=== PATIENT | male | born 1980 | race Caucasian/White ===

== ENCOUNTER 2017-02-03 15:58 | Emergency (ER) | payer SELFPAY ==
[~2017-02-03] VITALS: Ht 190.5 cm; Wt 75.0 kg
[~2017-02-03 15:58] MED LIST: IBUP-232 PO; LORTA5 PO
[2017-02-03 16:03] VITALS: BP 112/68; PULSE 92; RESP 18; TEMP 98.6; O2SAT 99
--- NOTE | 2017-02-03 16:11 | PD ---
Physical Exam Date Seen by Provider: Feb 03, 2017 Time Seen by Provider: 16:10 Narrative 36 yr old male here with c/o having a horse stepped on his foot in August and ever since he has been having some weird veins and pains in his right leg. He also c/o shortness of breath and tingling sensations. He has had SOB for 2.5 years. He is awaiting bed placement. Data Data Last Documented VS Vital Signs Date Time Temp Pulse Resp B/P (MAP) Pulse Ox O2 Delivery O2 Flow Rate FiO2 02/03/17 16:03 98.6 92 18 112/68 (83) 99 Room Air [facility] Medical Record Reviewed: Yes Supervised Visit with SUNNY: No Condition: Stable Lyndsay Jerry Feb 03, 2017 16:11
--- NOTE | 2017-02-03 23:36 | RADRPT ---
EXAM DATE/TIME: 02/03/2017 21:54 [place] COMPARISON: No previous studies available for comparison. INDICATIONS : Right foot pain after being stepped on by horse. MEDICAL HISTORY : None. SURGICAL HISTORY : None. ENCOUNTER: Initial ACUITY: 3 months PAIN SCORE: 2/10 LOCATION: Right lateral Foot FINDINGS: Three view examination of the right foot demonstrates no soft tissue swelling, dislocation, or fractu re. The tarsal bones appear intact. The interphalangeal and metatarsophalangeal joints are intact. There is a mild spur at the dorsal talus. The subtalar joint is not well visualized. The calcaneus is intact. There is sclerosis at the proximal medial aspect of the first distal phalanx. This is lik mateus incidental. Bony mineralization is normal. CONCLUSION: No acute disease. 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 Mayur Garcia MD on February 03, 2017 at 23:32 Board Certified Radiologist. This report was verified electronically.
--- NOTE | 2017-02-03 23:44 | PD ---
HPI Chief Complaint: Medical Clearance Time Seen by Provider: 20:52 Travel History International Travel<30 days: No Contact w/Intl Traveler<30days: No Traveled to known affect area: No History of Present Illness HPI 36-year-old male came to the emergency room with history of PFSH Past Medical History Diminished Hearing: Yes ([place] LEFT EAR) Gastrointestinal Disorders: Yes (gastritis, barrets espophagus ) Medical other: Yes (left ear ) Immunizations Current: Yes Tetanus Vaccination: > 5 Years Influenza Vaccination: No Past Surgical History Ear Surgery: Yes (TUBES PLACED IN LEFT EAR X3) Other Surgery: Yes (ADNOIDS) Social History Alcohol Use: Yes (occ.) Tobacco Use: No (QUIT 2012) Substance Use: No Allergies-Medications (Allergen,Severity, Reaction): Coded Allergies: No Known Allergies (Unverified , 12/01/14) Reported Meds & Prescriptions Reported Meds & Active Scripts Active Active Prescriptions or Reported Medications Unobtainable Data Data Last Documented VS Vital Signs Date Time Temp Pulse Resp B/P (MAP) Pulse Ox O2 Delivery O2 Flow Rate FiO2 02/03/17 23:58 88 16 120/68 (85) 97 02/03/17 16:03 98.6 Room Air Orders Orders Foot, Complete ([id number]) (02/03/17 ) MDM Medical Decision Making Medical Screen Exam Complete: Yes Emergency Medical Condition: Yes Medical Record Reviewed: Yes Diagnosis Primary Impression: Injury of foot Qualified Codes: S99.921A - Unspecified injury of right foot, initial encounter Referrals: Jay Bowens MD 1 week Additional Instructions: Please follow-up with the orthopedist was name and number been given to you. There is a possibility that you've had a fracture of the foot that's old and now healing. Return to the ER if the condition worsens or any other new concerns. Scripts Unable to Obtain Active Prescriptions or Reported Meds Disposition: 01 DISCHARGE HOME Condition: Stable Eder Booth MD Feb 03, 2017 23:44
--- NOTE | 2017-02-03 23:50 | PD ---
HPI Chief Complaint: Medical Clearance Time Seen by Provider: 20:52 Travel History International Travel<30 days: No Contact w/Intl Traveler<30days: No Traveled to known affect area: No History of Present Illness HPI 36-year-old male came to the emergency room with history of his right foot being stepped on by a horse but that happened 8 months ago. Patient also had some unrelated complaint like notice some prominent veins on the back of his calf and the leg on the right side. Also complaining of some postnasal drip and anxiety. Patient does not have a primary care doctor. Vital signs are stable. All his symptoms have been going on for more than 6 months. [facility] Past Medical History Narrative Medical List of his past medical, surgical, social and family history is reviewed from the nursing note. Diminished Hearing: Yes ([place] LEFT EAR) Gastrointestinal Disorders: Yes (gastritis, barrets espophagus ) Medical other: Yes (left ear ) Immunizations Current: Yes Tetanus Vaccination: > 5 Years Influenza Vaccination: No Past Surgical History Ear Surgery: Yes (TUBES PLACED IN LEFT EAR X3) Other Surgery: Yes (ADNOIDS) Social History Alcohol Use: Yes (occ.) Tobacco Use: No (QUIT 2012) Substance Use: No Allergies-Medications (Allergen,Severity, Reaction): Coded Allergies: No Known Allergies (Unverified , 12/01/14) Comments No known drug allergies. Reported Meds & Prescriptions Reported Meds & Active Scripts Active Active Prescriptions or Reported Medications Unobtainable Narrative Medication List of his home medications reviewed from the nursing note. Review of Systems Except as stated in HPI: all other systems reviewed are Neg Physical Exam Narrative GENERAL: Awake, alert, no obvious distress SKIN: Focused skin assessment warm/dry. Right leg varicosities HEAD: Atraumatic. Normocephalic. EYES: Pupils equal and round. No scleral icterus. No injection or drainage. ENT: No nasal bleeding or discharge. Mucous membranes pink and moist. NECK: Trachea midline. No JVD. CARDIOVASCULAR: Regular rate and rhythm. No murmur appreciated. RESPIRATORY: No accessory muscle use. Clear to auscultation. Breath sounds equal bilaterally. GASTROINTESTINAL: Abdomen soft, non-tender, nondistended. Hepatic and splenic margins not palpable. MUSCULOSKELETAL: No obvious deformities. No clubbing. No cyanosis. No edema. NEUROLOGICAL: Awake and alert. No obvious cranial nerve deficits. Motor grossly within normal limits. Normal speech. PSYCHIATRIC: Appropriate mood and affect; insight and judgment normal. Data Data Last Documented VS Vital Signs Date Time Temp Pulse Resp B/P (MAP) Pulse Ox O2 Delivery O2 Flow Rate FiO2 02/03/17 23:58 88 16 120/68 (85) 97 02/03/17 16:03 98.6 Room Air Orders Orders Foot, Complete ([id number]) (02/03/17 ) MDM Medical Decision Making Medical Screen Exam Complete: Yes Emergency Medical Condition: Yes Medical Record Reviewed: Yes Differential Diagnosis Varicose veins, healing fracture, foot contusion Narrative Course 11:48 PM the x-ray suggestive of some irregularity at the subtalar joint that the radiologist has called coalclaudio. But given his history I have asked him to follow up with orthopedist. Procedures EKG Prior to Arrival: No Diagnosis Primary Impression: Injury of foot Qualified Codes: S99.921A - Unspecified injury of right foot, initial encounter Additional Impression: Varicose veins of legs Referrals: Jay Bowens MD 1 week Additional Instructions: Please follow-up with the orthopedist was name and number been given to you. There is a possibility that you've had a fracture of the foot that's old and now healing. Return to the ER if the condition worsens or any other new concerns. As far as the varicose veins keep the legs elevated in the evening and at night when you are home. Wear compression stockings during the day when you are at work. Scripts Unable to Obtain Active Prescriptions or Reported Meds Disposition: 01 DISCHARGE HOME Condition: Stable Eder Booth MD Feb 03, 2017 23:50
[2017-02-03 23:58] VITALS: BP 120/68
== END 2017-02-03 23:59 | disposition home or self-care (01) ==
LOC: NEPD 15:58
DX: S99.921A Unspecified injury of right foot, initial encounter (principal); I83.91 Asymptomatic varicose veins of right lower extremity; R09.82 Postnasal drip; H91.92 Unspecified hearing loss, left ear; Z87.19 Personal history of other diseases of the digestive system; Z87.891 Personal history of nicotine dependence; Z87.39 Personal history of other diseases of the musculoskeletal system and connective tissue; W55.19XA Other contact with horse, initial encounter
CPT/HCPCS: 73630; 99283